=== PATIENT | male | born 1980 | race African-American/Black ===

== ENCOUNTER 2019-11-02 19:12 | Emergency (ER) | payer SELFPAY ==
[2019-11-02 19:58] VITALS: BP 153/87
== END 2019-11-02 20:36 | disposition left against medical advice (07) ==
LOC: ER 19:12
DX: Z53.21 Procedure and treatment not carried out due to patient leaving prior to being seen by health care provider (principal)

== ENCOUNTER 2019-11-21 15:06 | Emergency (ER) | payer SELFPAY ==
[2019-11-21 15:16] VITALS: BP 137/87
--- NOTE | 2019-11-21 15:49 | ER Document Report ---
HPI - HPI Patient complains to provider of: foot pain Time Seen by Provider: 11/21/19 15:36 Onset: Last week Onset/Duration: Persistent Quality of pain: Burning Pain Level: 1 Context: Patient presents complaining of tenderness to the left fourth toe. Patient complains of toe swelling. Patient denies any trauma to the toe. Patient denies any fever. Denies any history of diabetes. Associated Symptoms: Other - Left fourth toe pain. denies: Fever, Nausea Exacerbated by: Movement Relieved by: Denies Similar symptoms previously: No Recently seen / treated by doctor: No - ROS ROS below otherwise negative: Yes Systems Reviewed and Negative: Yes All other systems reviewed and negative - CONSTITUTIONAL Constitutional: DENIES: Fever, Chills - GASTROINTESTINAL Gastrointestinal: DENIES: Nausea - MUSCULOSKELETAL Musculoskeletal: REPORTS: Extremity pain, Swelling - DERM Skin Color: Erythema Notes: White skin to webspace of toes Past Medical History - General Information source: Patient - Social History Smoking Status: Current Every Day Smoker Frequency of alcohol use: None Drug Abuse: None Occupation: Construction Lives with: Family Family History: Reviewed & Not Pertinent Patient has suicidal ideation: No Patient has homicidal ideation: No - Medical History Medical History: Negative Surgical Hx: Negative - Immunizations Hx Diphtheria, Pertussis, Tetanus Vaccination: Yes Vertical Provider Document - CONSTITUTIONAL Agree With Documented VS: Yes Exam Limitations: No Limitations General Appearance: WD/WN, No Apparent Distress - INFECTION CONTROL TRAVEL OUTSIDE OF THE [place] IN LAST 30 DAYS: No - HEENT HEENT: Atraumatic, Normocephalic - NECK Neck: Normal Inspection - RESPIRATORY Respiratory: Breath Sounds Normal, No Respiratory Distress - CARDIOVASCULAR Cardiovascular: Regular Rate, Regular Rhythm - MUSCULOSKELETAL/EXTREMETIES Musculoskeletal/Extremeties: MAEW, Tender - Tenderness to left fourth toe with 1+ edema - NEURO Level of Consciousness: Awake, Alert, Appropriate Motor/Sensory: No Motor Deficit - DERM Integumentary: Warm, Dry, Rash - Scaling rash to webspace between toes of left foot, webspace between the left third and fourth toe with macerated skin Course - Re-evaluation Re-evalutation: 11/21/19 15:52 Patient encouraged to keep feet dry and to change socks frequently. Patient encouraged to leave feet open to the air when he is not at work. Discussed worsening symptoms that patient should return immediately for. Patient verbalized understanding is agreeable with plan of care at this time. - Vital Signs Vital signs: Temp Pulse Resp BP Pulse Ox 98.1 F 87 16 137/87 H 98 11/21/19 15:15 11/21/19 15:15 11/21/19 15:15 11/21/19 15:15 11/21/19 15:15 Discharge - Discharge Clinical Impression: Tinea pedis Qualifiers: Laterality: left Qualified Code(s): B35.3 - Tinea pedis Condition: Stable Disposition: HOME, SELF-CARE Instructions: Skin Fungus ([facility]) Additional Instructions: Return immediately for any new or worsening symptoms Followup with your primary care provider, call tomorrow to make a followup appointment Keep the skin between toes clean and dry Prescriptions: Ciprofloxacin HCl [Cipro 500 mg Tablet] 500 mg PO BID #14 tablet Ketoconazole [Nizoral] 1 applic TP DAILY #60 cream.gm. Referrals: [facility] [Provider Group] - Follow up as needed
== END 2019-11-21 15:47 | disposition home or self-care (01) ==
LOC: ER 15:06
DX: B35.3 Tinea pedis (principal); M79.675 Pain in left toe(s); M79.89 Other specified soft tissue disorders
CPT/HCPCS: 99283

== ENCOUNTER 2020-03-06 15:53 | Emergency (ER) | payer BC ==
--- NOTE | 2020-03-06 16:01 | ER Document Report ---
HPI - HPI Onset: Yesterday Onset/Duration: Gradual Context: Patient presents to the RTC for evaluation of upper respiratory symptoms. Patient reports cough fever that started yesterday. Fever has been as high as 101.5. Patient does acknowledge a history of asthma and does smoke a pack every 3 days. Patient denies any recent travel and has not had any recent known exposures to a coronavirus patient. 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 Associated Symptoms: Nonproductive cough, Fever Exacerbated by: Denies Relieved by: Denies Recently seen / treated by doctor: No - ROS ROS below otherwise negative: Yes Systems Reviewed and Negative: Yes All other systems reviewed and negative - CONSTITUTIONAL Constitutional: REPORTS: Fever, Chills - EENT EENT: DENIES: Sore Throat - NEURO Neurology: DENIES: Headache - CARDIOVASCULAR Cardiovascular: DENIES: Chest pain - RESPIRATORY Respiratory: REPORTS: Coughing. DENIES: Trouble Breathing - GASTROINTESTINAL Gastrointestinal: DENIES: Nausea, Patient vomiting - DERM Skin Color: Normal Skin Problems: None Past Medical History - General Information source: Patient - Social History Smoking Status: Current Every Day Smoker Occupation: [employer] Lives with: Family Family History: Reviewed & Not Pertinent Pulmonary Medical History: Reports: Hx Asthma Surgical Hx: Negative - Immunizations Hx Diphtheria, Pertussis, Tetanus Vaccination: Yes Vertical Provider Document - CONSTITUTIONAL Agree With Documented VS: Yes Exam Limitations: No Limitations General Appearance: WD/WN, No Apparent Distress - INFECTION CONTROL TRAVEL OUTSIDE OF THE [place] IN LAST 30 DAYS: No - HEENT HEENT: Atraumatic, Normocephalic. negative: Pharyngeal Exudate, Pharyngeal Tenderness, Pharyngeal Erythema - NECK Neck: Normal Inspection, Supple. negative: Lymphadenopathy-Left, Lymphadenopathy-Right - RESPIRATORY Respiratory: Breath Sounds Normal, No Respiratory Distress - CARDIOVASCULAR Cardiovascular: Regular Rhythm, No Murmur, Tachycardia - MUSCULOSKELETAL/EXTREMETIES Musculoskeletal/Extremeties: MAEW, FROM - NEURO Level of Consciousness: Awake, Alert, Appropriate Motor/Sensory: No Motor Deficit - DERM Integumentary: Warm, Dry, No Rash Course - Re-evaluation Re-evalutation: 03/06/20 16:00 The patient was evaluated during the global Covid 19 pandemic, and that diagnosis was suspected/considered upon their initial presentation. Their evaluation, treatment and testing was consistent with current guidelines for patients who present with complaints or symptoms that may be related to Covid 19. Patient presents with upper respiratory symptoms worrisome for possible Covid 19. Patient does not have emergency worrying symptoms such as difficulty breathing, shortness of breath, chest pain, pressure, confusion or cyanosis. Patient appears suitable for discharge as they are not of an advanced age, do not have any chronic medical conditions such as diabetes, CAD, immune deficiency, or chronic kidney disease. Patient patient is febrile and tachycardic without any tachypnea. Respirations are unlabored without any increased respiratory effort. Patient denies any distress and states that he is only here because he developed the fever and cough yesterday. Patient is nontoxic in appearance. Good return precautions have been discussed with patient, patient verbalized understanding and is agreeable with discharge plan of care at this time. Patient encouraged to take acetaminophen directly once he leaves the [facility] testing site. Patient encouraged to take acetaminophen every 4-6 hours for fever. Patient feels comfortable with his symptoms and feels as though he can manage them at home at this time. - Laboratory Laboratory results interpreted by me: 03/07/20 10:05 Labs- Entire Visit 03/06/20 03/06/20 16:13 16:13 Influenza A (Rapid) NEGATIVE Influenza B (Rapid) NEGATIVE Group A Strep Rapid NEGATIVE Discharge - Discharge Clinical Impression: covid 19 screening Upper respiratory infection Qualifiers: URI type: unspecified URI Qualified Code(s): J06.9 - Acute upper respiratory infection, unspecified Condition: Stable Disposition: HOME, SELF-CARE Instructions: Acetaminophen, Asthma ([facility]), Fever ([facility]), Upper Respiratory Illness ([facility]) Additional Instructions: Return immediately for any new or worsening symptoms Followup with your primary care provider, call tomorrow to make a followup appointment If you do not feel like you can manage your symptoms at home follow-up with the emergency department or call 911 if your symptoms become severe. As a person under investigation for Covid 19, the [place] department of Health and Human Services, division of public health advises you to adhere to the following guidance until your test results are reported to you. If your test result is positive, you will receive additional information from your provider and your local health department at that time. Remain at home until you are cleared by the health provider or public health authorities. Keep a log of visitors to your home, notify any visitors to your home of your isolation status. If you plan to move to a new address or leave the county, notify the local health department in your County. Call your doctor or seek care if you have an urgent medical need. Before seeking medical care, call ahead to get instructions from the provider before arriving at the medical office clinic or hospital. Notify them that you are being tested for the virus that causes Covid 19 so that arrangements can be made, as necessary, to prevent transmission to others in the healthcare setting. Next, notify the local health department in your county. If a medical emergency arises and you need to call 911, inform the first responders that you are being tested for the virus that causes Covid 19. Next, notify the local health department in your county. Referrals: [facility] [Primary Care Provider] - Follow up as needed
[2020-03-06 16:45] VITALS: BP 130/73
[2020-03-06 17:29] LABS: A TYPE INFLUENZA AG NEGATIVE (NEGATIVE); B INFLUENZA AG NEGATIVE (NEGATIVE)
== END 2020-03-06 16:00 | disposition home or self-care (01) ==
LOC: EDRDC 15:53
DX: J06.9 Acute upper respiratory infection, unspecified (principal); R50.9 Fever, unspecified; F17.210 Nicotine dependence, cigarettes, uncomplicated; Z20.828 Contact with and (suspected) exposure to other viral communicable diseases
CPT/HCPCS: 87070; 87635; 87804; 87880; 99211

== ENCOUNTER 2020-06-03 08:57 | Emergency (ER) | payer BC ==
[2020-06-03] MEDS ORDERED: ACETAMINOPHEN 325 MG TABLET PO ONE ×2 (10:11→14:59)
[2020-06-03] MEDS ORDERED: NORMAL SALINE 1000 ML 1,000 ML IV ONE (11:00)
--- NOTE | 2020-06-03 11:04 | ER Document Report ---
ED GI/ - General Chief Complaint: Abdominal Pain Stated Complaint: DIARRHEA/CHILLS Time Seen by Provider: 06/03/20 10:08 Notes: 39-year-old man presents to the emergency department with a history of fever, cramping pain and chills with abdominal pain and diarrhea. States his symptoms began 1 week ago. He has abdominal discomfort only when he has the bowel movements. Stools have been watery, no blood or bleeding. He denies nausea vomiting. He has no known exposure to coronavirus. 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 TRAVEL OUTSIDE OF THE [place] IN LAST 30 DAYS: No - Related Data Allergies/Adverse Reactions: No Known Allergies Allergy (Verified 06/03/20 10:51) Past Medical History - Social History Smoking Status: Current Every Day Smoker Frequency of alcohol use: Social Drug Abuse: None Family History: Reviewed & Not Pertinent Patient has homicidal ideation: No Pulmonary Medical History: Reports: Hx Asthma - Immunizations Hx Diphtheria, Pertussis, Tetanus Vaccination: Yes Review of Systems - Review of Systems Notes: Constitutional: + Fever. HENT: Negative for sore throat. Eyes: Negative for visual changes. Cardiovascular: Negative for chest pain. Respiratory: Negative for shortness of breath. Gastrointestinal: + Diarrhea, + cramping pain Genitourinary: Negative area Musculoskeletal: Negative for back pain. Skin: Negative for rash. Neurological: Negative for headaches, weakness or numbness. 10 point ROS negative except as marked above and in HPI. Physical Exam - Vital signs Vitals: Temp Pulse Resp BP Pulse Ox 102.4 F H 112 H 19 126/64 H 97 06/03/20 09:52 06/03/20 09:52 06/03/20 09:52 06/03/20 09:52 06/03/20 09:52 - Notes Notes: PHYSICAL EXAMINATION: Physical Exam: General: Well-nourished well-developed 39-year-old male in no acute distress HEENT: NC/AT, pupils equal round and reactive to light, MM moist,nares clear, oropharynx clear, airway patent Neck: supple, no adenopathy, no masses. Good range of motion Lungs: clear, no wheezing, no rales no rhonchi CVS: Regular rate and rhythm no murmur gallop or rub Abdomen: Soft, active, nontender, no masses, no hepatosplenomegaly Ext: No edema, clubbing or cyanosis. Neuro: Alert and responsive, moving all 4 extremities on command, cranial nerves intact, no focal findings Skin: Intact no open lesions, no rash Course - Re-evaluation Re-evalutation: 04/18 14:48 Patient presents with fever, diarrhea and body aches. Given his presentation, coronavirus screening test is being performed. I have instructed the patient that he will need to self isolate until he received a report of the test results. The patient acknowledges that he is being tested for COVID-19, and will self isolate at home until he receives results. He is instructed to avoid anti-inflammatory medications. May use Tylenol for fever, aches and pains. He is also instructed to return to the hospital if his symptoms are worsening or development of shortness of breath. Stool specimen was positive for many WBCs, the patient is being treated with Bactrim, Imodium, instructed to push fluids and to follow-up if the symptoms are worsening. Patient acknowledges understanding of this plan. - Vital Signs Vital signs: Temp Pulse Resp BP Pulse Ox 101.6 F H 112 H 19 126/64 H 97 06/03/20 11:30 06/03/20 09:52 06/03/20 09:52 06/03/20 09:52 06/03/20 09:52 - Laboratory Result Diagrams: 06/03/20 10:07 06/03/20 10:07 Laboratory results interpreted by me: 06/03/20 06/03/20 06/03/20 10:07 10:07 10:34 WBC 12.9 H RDW 15.2 H Lymph % (Auto) 6.9 L Absolute Neuts (auto) 10.9 H Seg Neutrophils % 85.2 H Sodium 135.3 L Stool for White Cells MANY H Discharge - Discharge Clinical Impression: Suspected 2019 novel coronavirus infection Diarrhea Qualifiers: Diarrhea type: infectious Qualified Code(s): A09 - Infectious gastroenteritis and colitis, unspecified Fever Qualifiers: Fever type: unspecified Qualified Code(s): R50.9 - Fever, unspecified Condition: Good Disposition: HOME, SELF-CARE Instructions: Antispasmodics ([facility]), Diarrhea, Nonspecific ([facility]) Additional Instructions: You were seen with fever and diarrhea. Given the pandemic and coronavirus concerns, your were made a person of interest and a swab was collected and will be sent for COVID-19 evaluation. You will need to self quarantine until you get the results. Avoid anti-inflammatory medications, you may use Tylenol for fever, aches and pains. Please return to the hospital if her symptoms are worsening or development of shortness of breath. You have been given a prescription for antibiotics, Bactrim, antispasmodic dicy clomine and instructed to use [id number] Imodium if the diarrhea is severe. These push fluids, use Tylenol for pain and continue to self quarantine while awaiting the results of the coronavirus testing. HOME CARE INSTRUCTIONS & INFORMATION: Thank you for choosing us for your medical needs. We hope you're satisfied with the care you received. After you leave, you must properly care for your problem and, at the same time, observe its progress. Any condition can change. Some illnesses can change rapidly over hours or days. If your condition worsens, return to the Emergency Department or see your physician promptly. ABOUT YOUR X-RAYS AND EKG'S: If you had an EKG or X-rays taken, they have been read by the Emergency Physician. The X-rays and EKG's will also be read by a Radiologist or Deputy Controller within 24 hours. If discrepancies are noted, you will be notified by telephone. Please be certain the ED has a correct telephone number & address where you can be reached. Also, realize that some fractures or abnormalities do not show up on initial X-rays. If your symptoms continue, see your physician. ABOUT YOUR LABORATORY TEST: If you had laboratory tests, the results have been reviewed by the Emergency Physician. Some test results (for example cultures) may not be available for several days. You will be contacted if any test result shows you need additional treatment. Please be certain the ED has a correct telephone number and address where you can be reached. ABOUT YOUR MEDICATIONS: You will receive instructions on how to take your medicine on the prescription label you receive. Additional information may be provided by the Pharmacy. If you have questions afterwards, call the ED for clarification or further instructions. Some prescribed medications may cause drowsiness. Do not perform tasks such as driving a car or operating machinery without consulting your Pharmacist. If you feel you need a refill of pain medication, your condition will need re-evaluation. Please do not call for a refill of any medication. ABOUT YOUR SIGNATURE: Signature of this document acknowledges to followin. Understanding that you received emergency treatment and that you may be released before al medical problems are known or treated. Please be certain the ED has a correct phone number & address where you can be reached. 2. Acknowledgement that you will arrange for follow-up care as recommended. 3. Authorization for the Emergency Physician to provide information to your follow-up Physician in order to maximize your care. AT ANY TIME, IF YOUR SYMPTOMS CHANGE SIGNIFICANTLY OR WORSEN OR YOU DEVELOP NEW SYMPTOMS, RETURN TO THE EMERGENCY DEPARTMENT IMMEDIATELY FOR RE-EVALUATION. OUR GOAL IS TO PROVIDE EXCELLENT MEDICAL CARE! WE HOPE THAT WE HAVE MET YOUR EXPECTATIONS DURING YOUR EMERGENCY DEPARTMENT VISIT AND THAT YOU FEEL YOU HAVE RECEIVED EXCELLENT CARE! Prescriptions: Sulfamethoxazole/Trimethoprim [Bactrim Ds Tablet] 1 each PO BID #20 tablet Dicyclomine HCl [Bentyl 10 mg Capsule] 1 cap PO TID #30 cap Forms: Return to Work
[2020-06-03 11:15] LABS: ABSOLUTE LYMPHOCYTES (AUTO) 0.9 10^3/uL (0.5-4.7); TOTAL CELLS COUNTED % (AUTO) 100 %
[2020-06-03 11:28] LABS: ABSOLUTE NEUT (AUTO) 10.9 10^3/uL (1.7-8.2); BASOPHILS % (AUTO) 0.4 % (0-2); HEMOGLOBIN 14.2 g/dL (13.5-17.0); LYMPHOCYTES % (AUTO) 6.9 % (13-45); MEAN CORPUSCULAR HEMOGLOBIN 28.6 pg (27.0-33.4); MEAN CORPUSCULAR HGB CONC 33.8 g/dL (32.0-36.0); MEAN CORPUSCULAR VOLUME 85 fl (80-97); MONOCYTES % (AUTO) 7.5 % (3-13); PLATELET COUNT 253 10^3/uL (150-450); RED BLOOD COUNT 4.96 10^6/uL (4.35-5.55); RED CELL DISTRIBUTION WIDTH 15.2 % (11.5-14.0); SEGMENTED NEUTROPHILS % (AUTO) 85.2 % (42-78); WHITE BLOOD COUNT 12.9 10^3/uL (4.0-10.5)
[2020-06-03 11:31] LABS: ALBUMIN 3.9 g/dL (3.5-5.0); ALKALINE PHOSPHATASE 88 U/L (38-126); ANION GAP 5 (5-19); ASPARTATE AMINO TRANSFERASE 25 U/L (17-59); BILIRUBIN,TOTAL 0.3 mg/dL (0.2-1.3); BLOOD UREA NITROGEN 14 mg/dL (7-20); CALCIUM 8.7 mg/dL (8.4-10.2); CARBON DIOXIDE 23 mmol/L (22-30); CHLORIDE 107 mmol/L (98-107); GLUCOSE 109 mg/dL (75-110); POTASSIUM 4.2 mmol/L (3.6-5.0); TOTAL PROTEIN 7.2 g/dL (6.3-8.2)
[2020-06-03 15:20] VITALS: BP 115/69
== END 2020-06-03 15:21 | disposition home or self-care (01) ==
LOC: ER 08:57
DX: A09 Infectious gastroenteritis and colitis, unspecified (principal); R50.9 Fever, unspecified; R10.9 Unspecified abdominal pain; J45.909 Unspecified asthma, uncomplicated; F17.200 Nicotine dependence, unspecified, uncomplicated; Z20.828 Contact with and (suspected) exposure to other viral communicable diseases
CPT/HCPCS: 99284; 36415; 87045; 89055; 87205; 85025; 87635; 80053; J7030; C9803